=== PATIENT | male | born 1980 | race Caucasian/White ===

== ENCOUNTER 2022-11-19 11:21 | Day surgery (SDC) | payer OTHER ==
[~2022-11-19] VITALS: Ht 175.3 cm; Wt 104.8 kg
[~2022-11-19 11:21] MED LIST: PANT40TA29; PROA1AER2; SILD50TA2; SUMA50TA2; VITA500075 PO
[2022-11-19] MEDS: NS 1,000 ML IV ONE (12:44)
[2022-11-19] MEDS ORDERED: fentaNYL 100 MCG/2 ML INJECTION As Ordered ONE (13:28)
[2022-11-19] MEDS ORDERED: LIDOCAINE 2% 100MG/5ML SDV (FOR ANES.) As Ordered ONE (13:28)
[2022-11-19] MEDS ORDERED: propofoL 200 MG/20 ML VIAL As Ordered ONE (13:28)
[2022-11-19 14:25] VITALS: TEMP 97.5
[2022-11-19 14:47] VITALS: BP 140/92; O2SAT 94
== END 2022-11-19 14:51 | disposition home or self-care (01) ==
LOC: M OPP 11:21
PROVIDERS: ATTEND Internal Medicine Gastroenterology
DX: K31.A0 Gastric intestinal metaplasia, unspecified (principal); K20.0 Eosinophilic esophagitis; K44.9 Diaphragmatic hernia without obstruction or gangrene; K30 Functional dyspepsia; Z79.1 Long term (current) use of non-steroidal anti-inflammatories (NSAID); Z79.51 Long term (current) use of inhaled steroids; Z79.52 Long term (current) use of systemic steroids
CPT/HCPCS: 43239; 88305; J3010

== ENCOUNTER → 2023-01-06 | Outpatient (CLI) | payer OTHER ==
[~2023-01-06] MED LIST changes: +FLUT22IN INH; -PANT40TA29; +PANT40TA29 PO; -PROA1AER2; +PROA1AER2 INH; -SILD50TA2; +SILD50TA2 PO; -SUMA50TA2; +SUMA50TA2 PO
[2023-01-06 11:00] LABS: BASO % 0.3 % (0.0-1.0); EOS # 0.3 10^3/uL (0.0-0.5); EOS % 3.8 % (0.0-3.0); HEMATOCRIT 44.2 % (42.0-52.0); HEMOGLOBIN 15.7 g/dl (13.5-17.5); LYMPH # 2.3 10^3/uL (1.5-5.0); LYMPH % 33.8 % (24.0-44.0); MEAN CORPUSCULAR HGB CONC 35.5 g/dl (32.0-36.5); MEAN CORPUSCULAR VOLUME 84.4 fl (80.0-96.0); MONO # 0.5 10^3/uL (0.0-0.8); MONO % 6.5 % (2.0-8.0); NEUTROPHILS # 3.8 10^3/uL (1.5-8.5); PLATELET COUNT, AUTOMATED 344 10^3/uL (150-450); RED BLOOD COUNT 5.24 10^6/uL (4.30-6.10); WHITE BLOOD COUNT 6.9 10^3/uL (4.0-10.0)
[2023-01-06 11:21] LABS: IRON (FE) 140 UG/DL (65-175); PERCENT SATURATION 41.1 % (19.7-50.0); TOTAL IRON BINDING CAPACITY 341 UG/DL (250-425)
[2023-01-06 11:25] LABS: ALKALINE PHOSPHATASE 131 U/L (46-116); ALT/SGPT 100 U/L (7.0-40); AST/SGOT 39 U/L (<34); BILIRUBIN,DIRECT 0.2 MG/DL (<0.4); BILIRUBIN,TOTAL 0.6 MG/DL (0.3-1.2); CHOLESTEROL LEVEL 199 MG/DL (<200); CHOLESTEROL RISK RATIO 6.37 (<5); FERRITIN 175.2 NG/ML (10.5-307.3); FOLATE 6.2 NG/ML (>5.4); HDL CHOLESTEROL 31.2 MG/DL (>40); LDL CHOLESTEROL 142.8 MG/DL (<100); NON-HDL-C 167.8 MG/DL; TOTAL PROTEIN 6.5 G/DL (5.7-8.2); TRIGLYCERIDES LEVEL 125 MG/DL (<150); VITAMIN B12 LEVEL 605 PG/ML (211-911)
[2023-01-06 12:00] LABS: HEPATITIS C VIRUS ABY INDEX 0.13 INDEX (<0.8)
[2023-01-07 23:07] LABS: ANA (HEP2) Negative (.); ANTI-MITOCHONDRIAL ANTIBODY <20.0 Units (0.0-20.0); HEPATITIS A IgG TOTAL Positive (Negative); HEPATITIS B CORE ANTIBODY IGG Negative (Negative); LIVER-KIDNEY MICROSOMAL ABY <20.1 Units (0.0-20.0)
== END ==
LOC: M LAB 10:01
PROVIDERS: ATTEND Internal Medicine Gastroenterology
DX: R79.89 Other specified abnormal findings of blood chemistry (principal)

== ENCOUNTER 2023-01-14 11:54 | Day surgery (SDC) | payer OTHER ==
[~2023-01-14] VITALS: Ht 175.3 cm; Wt 104.0 kg
[~2023-01-14 11:54] MED LIST changes: +NS 1,000 ML IV ONE
[2023-01-14] MEDS ORDERED: EXCETAB32 PO (12:47)
[2023-01-14] MEDS ORDERED: BENA25CA4 PO (12:47)
[2023-01-14] MEDS ORDERED: LIDOCAINE 2% 100MG/5ML SDV (FOR ANES.) As Ordered ONE (14:46)
[2023-01-14] MEDS ORDERED: propofoL 200 MG/20 ML VIAL As Ordered ONE ×2 (14:46→14:57)
[2023-01-14 15:35] VITALS: BP 131/79; O2SAT 96
== END 2023-01-14 15:46 | disposition home or self-care (01) ==
LOC: M OPP 11:54
PROVIDERS: ATTEND Internal Medicine Gastroenterology
DX: K20.0 Eosinophilic esophagitis (principal); K44.9 Diaphragmatic hernia without obstruction or gangrene; K29.70 Gastritis, unspecified, without bleeding; Z79.51 Long term (current) use of inhaled steroids; Z79.899 Other long term (current) drug therapy

== ENCOUNTER → 2023-03-15 | Outpatient (CLI) | payer OTHER ==
[~2023-03-15] MED LIST changes: +BENA25CA4 PO; +EXCETAB32 PO; +METHACHOLINE KIT INH ONE; -NS 1,000 ML IV ONE
== END ==
LOC: M CARPUL 12:42
PROVIDERS: ATTEND Internal Medicine Pulmonary Disease
DX: J45.30 Mild persistent asthma, uncomplicated (principal)
CPT/HCPCS: 94070; J7674

== ENCOUNTER → 2023-04-01 | Outpatient (CLI) | payer OTHER ==
[~2023-04-01] MED LIST changes: -METHACHOLINE KIT INH ONE
== END ==
LOC: M PLAIMG 13:37
PROVIDERS: ATTEND Internal Medicine Pulmonary Disease
DX: R91.8 Other nonspecific abnormal finding of lung field (principal)

== ENCOUNTER 2023-04-21 14:10 | Emergency (ER) | payer OTHER ==
[~2023-04-21] VITALS: Ht 175.3 cm; Wt 106.0 kg
[2023-04-21 14:11] VITALS: BP 132/79; TEMP 98.9; O2SAT 95
== END 2023-04-21 15:15 | disposition home or self-care (01) ==
LOC: M ED 14:10
DX: S61.102A Unspecified open wound of left thumb with damage to nail, initial encounter (principal); Y92.009 Unspecified place in unspecified non-institutional (private) residence as the place of occurrence of the external cause; Z79.82 Long term (current) use of aspirin; Z79.899 Other long term (current) drug therapy

== ENCOUNTER → 2023-08-19 | Outpatient (CLI) | payer OTHER ==
[2023-08-19 11:46] LABS: BILIRUBIN,DIRECT 0.1 MG/DL (<0.4); BILIRUBIN,TOTAL 0.3 MG/DL (0.3-1.2); TOTAL PROTEIN 6.3 G/DL (5.7-8.2)
== END ==
LOC: M LAB 10:20
PROVIDERS: ATTEND Internal Medicine Gastroenterology
DX: K20.0 Eosinophilic esophagitis (principal)